=== PATIENT | female | born 1940 | race Caucasian/White ===

== ENCOUNTER → 2023-01-20 13:03 | Outpatient (BNVA) | payer MEDICARE, BC, MEDICAID, SELFPAY | PROVIDERS: Family Provider Family Medicine; PCP Nurse Practitioner Family; Visit Provider Family Medicine | DX: I10 Essential (primary) hypertension | CPT/HCPCS: 80053; 80061; 84443; 85025 ==

== ENCOUNTER → 2023-03-06 18:09 | Outpatient (BNVA) | payer MEDICARE, BC, MEDICAID, SELFPAY | PROVIDERS: Family Provider Family Medicine; PCP Nurse Practitioner Family; Visit Provider Nurse Practitioner Family | DX: R30.0 Dysuria (principal) | CPT/HCPCS: 81000 ==

== ENCOUNTER → 2023-03-10 15:18 | Outpatient (BNVA) | payer MEDICARE, BC, MEDICAID, SELFPAY | PROVIDERS: Family Provider Family Medicine; PCP Nurse Practitioner Family; Visit Provider Nurse Practitioner Family | DX: N39.0 Urinary tract infection, site not specified (principal) | CPT/HCPCS: 81000 ==

== ENCOUNTER → 2023-04-28 14:21 | Outpatient (BNVA) | payer MEDICARE, BC, MEDICAID, SELFPAY | PROVIDERS: Family Provider Family Medicine; PCP Nurse Practitioner Family; Visit Provider Nurse Practitioner Family | DX: M25.551 Pain in right hip (principal); Z96.641 Presence of right artificial hip joint | CPT/HCPCS: 73502 ==

== ENCOUNTER → 2023-06-06 15:17 | Outpatient (BNVA) | payer MEDICARE, BC, MEDICAID, SELFPAY | PROVIDERS: Family Provider Family Medicine; PCP Nurse Practitioner Family; Visit Provider Nurse Practitioner Family | DX: R30.0 Dysuria (principal) | CPT/HCPCS: 71046; 81000; 87086 ==

== ENCOUNTER → 2023-06-23 14:25 | Outpatient (BNVA) | payer MEDICARE, BC, MEDICAID, SELFPAY | PROVIDERS: Family Provider Family Medicine; PCP Nurse Practitioner Family; Visit Provider Nurse Practitioner Family | DX: R30.0 Dysuria (principal); R05.9 Cough, unspecified | CPT/HCPCS: 81000; 87400; 87426 ==

== ENCOUNTER → 2023-08-01 16:02 | Outpatient (BNVA) | payer MEDICARE, BC, MEDICAID, SELFPAY | PROVIDERS: Family Provider Family Medicine; PCP Nurse Practitioner Family; Visit Provider Nurse Practitioner Family | DX: R42 Dizziness and giddiness (principal); I10 Essential (primary) hypertension; R73.9 Hyperglycemia, unspecified | CPT/HCPCS: 80053; 80061; 81003; 82607; 83036; 83735; 84443; 85025; 87086 ==

== ENCOUNTER 2024-01-02 06:30 | Outpatient (RCR) | payer MEDICARE, BC, MEDICAID, SELFPAY | END 2024-02-01 23:59 | disposition home or self-care (01) | LOC: TPT 06:30 | PROVIDERS: Visit Provider Nurse Practitioner Family | DX: R26.81 Unsteadiness on feet (principal) | CPT/HCPCS: 97162 ==

== ENCOUNTER → 2024-01-02 15:47 | Outpatient (BNVA) | payer MEDICARE, BC, MEDICAID, SELFPAY | PROVIDERS: Family Provider Family Medicine; PCP Nurse Practitioner Family; Visit Provider Nurse Practitioner Family | DX: I10 Essential (primary) hypertension (principal); E55.9 Vitamin D deficiency, unspecified | CPT/HCPCS: 80053; 80061; 81000; 81003; 82306; 82607; 84443; 85025; 87086 ==

== ENCOUNTER → 2024-02-20 13:47 | Outpatient (BNVA) | payer MEDICARE, BC, MEDICAID, SELFPAY | PROVIDERS: PCP Family Medicine; Visit Provider Nurse Practitioner Family | DX: R35.0 Frequency of micturition (principal) | CPT/HCPCS: 81003; 87086 ==

== ENCOUNTER → 2024-05-09 09:55 | Outpatient (BNVA) | payer MEDICARE, BC, MEDICAID, SELFPAY | PROVIDERS: PCP Nurse Practitioner Family; Referring Provider Nurse Practitioner Family; Visit Provider Psychiatry & Neurology Neurology | DX: F03.90 Unspecified dementia, unspecified severity, without behavioral disturbance, psychotic disturbance, mood disturbance, and anxiety (principal); R26.89 Other abnormalities of gait and mobility | CPT/HCPCS: 83520; 99203 ==

== ENCOUNTER 2024-05-16 12:20 | Outpatient (CLI) | payer MEDICARE, BC, MEDICAID, SELFPAY ==
--- NOTE | 2024-05-16 13:15 | MR_ITS ---
WS: [id number] MRI BRAIN WITH AND WITHOUT CONTRAST HISTORY: F03.90 - Unspecified dementia, unspecified severity, with... COMPARISON: None available. TECHNIQUE: Multiplanar imaging performed through the brain with MultiHance 12 ml's IV. No acute infarcts are seen. Whittington-white matter differentiation is well preserved. Moderate symmetric cerebral atrophy. Slightly greater atrophy involving the frontal and temporal horns. Prominent sylvian fissures. Extensive T2 and FLAIR signal hyperintensities throughout the white matter. Mild ischemic changes in the guero bilaterally. Tiny lacunar infarct RIGHT insular ribbon. Moderate bilateral hippocampal atrophy. No susceptibility artifacts or prior lacunar infarcts. Mildly prominent ventricles and extra-axial spaces on the basis of central and peripheral atrophy. Clivus and pituitary gland are normal. Mild cerebellar atrophy. There is a very tiny lacunar infarct in the posterior RIGHT cerebellum. Postcontrast images are negative for masses or vascular malformations. Dural venous sinuses are normal. Paranasal sinuses: Well aerated with no significant disease. Mastoid air cells: Normal. Calvarium and scalp: Normal. MR/MR head wo/w con [id number] IMPRESSION: 1. No acute diffusion abnormalities are hemorrhage. 2. Moderate symmetric cerebral atrophy with extensive small vessel ischemic ty pe changes. Mild bilateral ischemic changes in the guero. Slightly greater atrop hy involving the frontal and temporal lobes. 3. Tiny lacunar infarcts in the RIGHT insular ribbon and RIGHT cerebellum. 4. Moderate hippocampal atrophy.
[2024-05-16] MEDS: gadobenate dimeglumine 20 mL vial 12 ML IV (13:21)
== END 2024-05-16 12:21 | disposition home or self-care (01) ==
PROVIDERS: PCP Nurse Practitioner Family; Visit Provider Psychiatry & Neurology Neurology
DX: F03.90 Unspecified dementia, unspecified severity, without behavioral disturbance, psychotic disturbance, mood disturbance, and anxiety (principal); G31.89 Other specified degenerative diseases of nervous system; R93.0 Abnormal findings on diagnostic imaging of skull and head, not elsewhere classified
CPT/HCPCS: 70553

== ENCOUNTER 2024-06-03 10:57 | Outpatient (CLI) | payer MEDICARE, BC, MEDICAID, SELFPAY ==
--- NOTE | 2024-06-03 11:00 | USCV_ITS ---
Keisha Issa Age: 84 Gender: F : 1940 Exam Date: 06/03/2024 11:11 Ordering Phys: Reginaldo Flores MD Technologist: ARCHIE Exam Location: [facility] – [place] Indication: Memory loss, Balance Issues Risk Factors: Previous Vascular Surgery: Right Brachial BP: / Left Brachial BP: / Right Left Velocity (cm/s) Spectral Plaque Velocity (cm/s) Spectral Plaque Syst/Diast Broadening Syst/Diast Broadening 68.80/ 6.30 Prox CCA 66.60 / 11.70 71.00/ 14.70 Mid CCA 87.80 / 18.00 83.10/ 17.50 Distal CCA 76.20 / 14.40 62.20/ 9.70 Prox ICA 40.30 / 13.00 57.20/ 13.70 Mid ICA 48.60 / 11.90 46.40/ 11.10 Distal ICA 55.00 / 16.00 74.20 ECA 48.80 0.70 ICA/CCA 0.50 Antegrade Vertebral Antegrade 53.70/ 12.00 cm/s 50.80/ 11.80 cm/s Tri Subclavian Tri 56.90 122.8 0 FINDINGS Comparison: none available. No significant elevation of systolic or diastolic velocities. Waveforms are normal. Mild scattered plaque in the carotid arteries. CONCLUSIONS Bilateral ICA stenosis less than 50%. Dr. Bridgette Page DO (Electronically Signed) Final Date: 03 June 2024 16:16 S
== END 2024-06-03 10:58 | disposition home or self-care (01) ==
LOC: RAD 10:58
PROVIDERS: PCP Nurse Practitioner Family; Visit Provider Psychiatry & Neurology Neurology
DX: R26.89 Other abnormalities of gait and mobility (principal); I65.23 Occlusion and stenosis of bilateral carotid arteries
CPT/HCPCS: 93880

== ENCOUNTER → 2024-08-01 13:14 | Outpatient (BNVA) | payer MEDICARE, BC, MEDICAID, SELFPAY | PROVIDERS: PCP Nurse Practitioner Family; Visit Provider Nurse Practitioner Family | DX: I10 Essential (primary) hypertension (principal); M81.0 Age-related osteoporosis without current pathological fracture; F03.90 Unspecified dementia, unspecified severity, without behavioral disturbance, psychotic disturbance, mood disturbance, and anxiety | CPT/HCPCS: 80053; 80061; 82306; 82607; 83735; 84443; 85025 ==

== ENCOUNTER → 2024-08-06 10:53 | Outpatient (BNVA) | payer MEDICARE, BC, MEDICAID, SELFPAY | PROVIDERS: PCP Nurse Practitioner Family; Visit Provider Nurse Practitioner Family | DX: R73.9 Hyperglycemia, unspecified (principal) | CPT/HCPCS: 83036 ==

== ENCOUNTER → 2024-09-04 15:37 | Outpatient (BNVA) | payer MEDICARE, BC, MEDICAID, SELFPAY | PROVIDERS: PCP Nurse Practitioner Family; Visit Provider Psychiatry & Neurology Neurology | DX: F03.90 Unspecified dementia, unspecified severity, without behavioral disturbance, psychotic disturbance, mood disturbance, and anxiety (principal); R41.3 Other amnesia | CPT/HCPCS: 99212 ==

== ENCOUNTER → 2024-10-15 11:58 | Outpatient (BNVA) | payer MEDICARE, BC, MEDICAID, SELFPAY | PROVIDERS: PCP Nurse Practitioner Family; Visit Provider Nurse Practitioner Family | DX: M81.0 Age-related osteoporosis without current pathological fracture (principal) | CPT/HCPCS: 80048; 82306 ==

== ENCOUNTER 2024-11-26 11:29 | Outpatient (CLI) | payer MEDICARE, BC, MEDICAID, SELFPAY ==
--- NOTE | 2024-11-26 11:32 | XRR_ITS ---
PROCEDURE INFORMATION: Exam: XR Right Hip Exam date and time: 11/26/2024 11:43 AM Age: 84 years old Clinical indication: Hip pain; Right hip; Prior surgery; Surgery date: 6+ months; Surgery type: Partial hip replacement x 1 1/2 year. Femur, knee replacement; HX of breast cancer; Additional info: M25.551 - pain in right hip TECHNIQUE: Imaging protocol: Radiologic exam of the right hip. Views: 1 view hip with pelvis when performed. COMPARISON: CR XR hip RT 2-3V wo/w pel* [id number] 04/28/2023 2:28 PM FINDINGS: Bones/joints: Intact right hip prosthesis in anatomic alignment. No fractures are seen. Partially visualized plate and fixation screws in the mid femoral shaft. Soft tissues: Unremarkable. XR/XR hip RT 2-3V wo/w pel* [id number] IMPRESSION: No acute findings.
--- NOTE | 2024-11-26 11:32 | XRR_ITS ---
PROCEDURE INFORMATION: Exam: XR Right Femur Exam date and time: 11/26/2024 11:43 AM Age: 84 years old Clinical indication: Pain; Right; Prior surgery; Surgery date: 6+ months; Surgery type: Partial hip replacement x 1 1/2 year, femur, knee replacement; HX of breast cancer; Additional info: M25.551 - pain in right hip TECHNIQUE: Imaging protocol: Radiologic exam of the right femur. Views: 2 views. COMPARISON: CR XR hip RT 2-3V wo/w pel* [id number] 04/28/2023 2:28 PM FINDINGS: Bones/joints: No acute fracture. Right hip prosthesis in anatomic alignment. Plate and fixation screws along limited distal femur laterally appears intact. Knee prosthesis in anatomic alignment. Soft tissues: Unremarkable. XR/XR femur RT min 2V* [id number] IMPRESSION: No acute findings. Hardware as described.
== END 2024-11-26 11:30 | disposition home or self-care (01) ==
PROVIDERS: PCP Nurse Practitioner Family; Visit Provider Nurse Practitioner Family
DX: M25.551 Pain in right hip (principal); Z96.641 Presence of right artificial hip joint; Z98.890 Other specified postprocedural states; Z96.651 Presence of right artificial knee joint
CPT/HCPCS: 73502; 73552

== ENCOUNTER 2024-12-18 10:52 | Outpatient (CLI) | payer MEDICARE, BC, MEDICAID, SELFPAY ==
--- NOTE | 2024-12-18 11:00 | MR_ITS ---
WS: [id number] EXAMINATION: MR hip RT wo con* [id number] ORDER DATE: 12/18/2024 11:38 AM COMPARISON: None. HISTORY: M25.551 - Pain in right hip CONTRAST: None. TECHNIQUE: Coronal STIR of the Pelvis. Coronal proton density, coronal T1, axial T2 fat sat, axial T1, sagittal T2 fat sat, and sagittal T1 performed of the hip. FINDINGS: Some images degraded by susceptibility artifact from RIGHT hip hardware Osteopenia. Postoperative changes RIGHT PANKAJ. Partially visualized plate and screw fixation lateral mid femur. Hardware results in susceptibility artifact which degrades images in the RIGHT hip area. Surrounding RIGHT hip gluteus musculature and soft tissues are normal in appearance. Normal bone marrow signal in the RIGHT ilium. Normal bone marrow signal in the visualized sacral bony structures and LEFT ilium. No sacral insufficiency fractures. Normal visualized sacrococcygeal junction. Moderate degenerative narrowing LEFT hip. Trace degenerative edema in the LEFT acetabulum. 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 Sigmoid diverticulosis. Partially visualized fat-containing infraumbilical hernia MR/MR hip RT wo con* [id number] IMPRESSION: 1. Prior postoperative changes RIGHT PANKAJ with partially visualized plate and s crew fixation in the mid femur. Associated susceptibility artifact degrades colt ges in this area. CT are three-phase bone scan would be better to assess for dixon rdware failure or PANKAJ loosening 2. No visualized edema in the RIGHT ilium or pelvic bony structures. 3. No sacral insufficiency fractures. 4. Moderate degenerative arthritis LEFT hip. Trace edema in the LEFT acetabulu m. 5. Small partially visualized fat-containing infraumbilical hernia.
== END 2024-12-18 10:53 | disposition home or self-care (01) ==
LOC: RAD 10:53
PROVIDERS: PCP Nurse Practitioner Family; Visit Provider Nurse Practitioner Family
DX: M25.551 Pain in right hip (principal); M81.0 Age-related osteoporosis without current pathological fracture
CPT/HCPCS: 73721

== ENCOUNTER → 2025-01-29 11:16 | Outpatient (BNVA) | payer MEDICARE, BC, MEDICAID, SELFPAY | PROVIDERS: PCP Nurse Practitioner Family; Visit Provider Nurse Practitioner Family | DX: I10 Essential (primary) hypertension (principal); E78.5 Hyperlipidemia, unspecified; M81.0 Age-related osteoporosis without current pathological fracture; R73.09 Other abnormal glucose | CPT/HCPCS: 80053; 80061; 82306; 83036; 85025 ==

== ENCOUNTER 2025-02-13 14:16 | Outpatient (CLI) | payer MEDICARE, BC, MEDICAID, SELFPAY ==
--- NOTE | 2025-02-13 14:30 | XR_ITS ---
WS: [id number] DEXA (DUAL ENERGY X-RAY ABSORPTIOMETRY) Bone mineral density was performed using a [employer] machine. HISTORY: M81.0 - Age-related osteoporosis without current patholog... COMPARISON: None available. Lumbar spine BMD (L1-L4): 1.175 T score: -0.2 Z score: 2.0 Total hip BMD: Left: 0.802 (g/cm2). T score: -1.6 (no units) Z score: 0.8 (no units) 10 year probability of a major osteoporotic fracture is 20.8%. XR/XR DEXA axial skeleton* [id number] IMPRESSION: OSTEOPENIA based upon the WHO classification for females.
== END 2025-02-13 14:17 | disposition home or self-care (01) ==
LOC: RAD 14:17
PROVIDERS: PCP Nurse Practitioner Family; Visit Provider Nurse Practitioner Family
DX: Z13.820 Encounter for screening for osteoporosis (principal); M81.0 Age-related osteoporosis without current pathological fracture; M85.88 Other specified disorders of bone density and structure, other site
CPT/HCPCS: 77080